=== PATIENT | female | born 1950 | race Two or more races ===

== ENCOUNTER 2017-01-28 05:01 | Inpatient (IN) | payer OTHER ==
[~2017-01-28] VITALS: Ht 152.4 cm; Wt 93.4 kg
[2017-01-28] MEDS ORDERED: KETOROLAC TROMETHAMINE INJ 30 MG/ML VIAL ONE (05:52)
[2017-01-28] MEDS ORDERED: BUPIVACAINE MPF 0.5% W/EPI INJ 30 ML VIAL ONE (05:52)
[2017-01-28] MEDS ORDERED: BACITRACIN 50000 UNITS/VIAL ONE (05:52)
[2017-01-28] MEDS ORDERED: HYDR25TA4 PO (05:54)
[2017-01-28] MEDS ORDERED: ATEN50TA PO (05:54)
[2017-01-28] MEDS ORDERED: GABA-534 PO (05:54)
[2017-01-28] MEDS ORDERED: IBUP-1955 PO (05:54)
[2017-01-28] MEDS ORDERED: PANT40TA2 PO (05:54)
[2017-01-28] MEDS ORDERED: LOSA100T3 PO (05:54)
[2017-01-28] MEDS ORDERED: AMLO10TA4 PO (05:54)
[2017-01-28] MEDS ORDERED: CEFAZOLIN SODIUM/DEXTROSE,ISO 50 ML IV ONE (06:04)
[2017-01-28] MEDS ORDERED: IV SET PRIMARY 1 EA INFUS.SET MC ONE (06:05)
[2017-01-28] MEDS ORDERED: IV NS 0.9% 1,000 ML ONE (06:05)
[2017-01-28] MEDS ORDERED: NEEDLELESS EST SET LARGE BORE 1 EA INFUS.SET MC ONE (06:05)
[2017-01-28] MEDS ORDERED: SECONDARY IV SET 1 EA INFUS.SET MC ONE ×2 (06:05→16:03)
[2017-01-28] MEDS ORDERED: MORPHINE SULFATE/PF 10 MG/10ML (1MG/ML) AMPUL ONE (06:18)
[2017-01-28] MEDS ORDERED: MIDAZOLAM HCL 2 MG/2ML VIAL ONE (06:19)
[2017-01-28] MEDS ORDERED: SUCCINYLCHOLINE CHLORIDE 20 MG/ML VIAL ONE (06:19)
[2017-01-28] MEDS ORDERED: FENTANYL PF 100MCG/2ML AMPUL ONE (06:57)
[2017-01-28] MEDS ORDERED: ROCURONIUM BROMIDE 50 MG/5 ML ONE (06:58)
[2017-01-28 07:05] VITALS: BP 142/71
[2017-01-28] MEDS ORDERED: TRANEXAMIC ACID 3,000 MG in SODIUM CHLORIDE IRRIG SOLUTION 70 ML IR ONE (07:30)
[2017-01-28] MEDS ORDERED: HYDROMORPHONE INJ 2 MG/ML DISP.SYRIN ONE (08:59)
[2017-01-28] MEDS ORDERED: oxyCODONE IR immediate release 5 MG CAPSULE PO PRN (09:30)
[2017-01-28] MEDS ORDERED: NALOXONE HCL 0.4 MG/ML AMPUL IV PRN ×2 (09:30→11:00)
--- NOTE | 2017-01-28 09:43 | NUR ---
MS RN NOTES RECEIVED PT FORM OR AWAKE ALERT AND VERBALLY RESPONSIVE. NOT IN ANY DISTRESS. NO SOB NOTED. NO S/SX OF ANY PAIN OR DISCOMFORT AT THIS TIME TO HAVE SALES SUPPORT REP PUMP WILL CONTINUE TO MONITOR. ORIENTED TO ROOM AND USE OF CALL LIGHT WITHIN REACH. BED IN LOWEST POSITION. SR UP X 2 WITH BED ALARM ON FOR SAFETY. WILL CONTINUE TO MONITOR, DR RAMOS AWARE OF PTS ARRIVAL, TO HAVE CONSULT WITH DR. ARAGON
[2017-01-28 10:00] VITALS: BP_SYST 131; BP_SYST 133; BP_DIAS 77; BP_DIAS 79
[2017-01-28] MEDS ORDERED: ZOLPIDEM TARTRATE 5 MG TABLET PO PRN (10:00)
[2017-01-28] MEDS ORDERED: DOCUSATE SODIUM 250 MG CAPSULE PO PRN (10:00)
[2017-01-28] MEDS ORDERED: ONDANSETRON HCL/PF 4 MG/2 ML VIAL IV PRN ×2 (10:00→11:00)
[2017-01-28] MEDS ORDERED: HYDROCODONE/APAP 5/325MG 1 EACH TABLET PO PRN (10:00)
[2017-01-28] MEDS ORDERED: SET PCA INFUSE SET 1 EA INFUS.SET MC ONE (10:29)
[2017-01-28] MEDS ORDERED: CLONIDINE HCL 0.1 MG TABLET PO PRN (10:30)
[2017-01-28] MEDS ORDERED: MENTHOL/CETYLPYRD (CEPACOL) 1 LOZ LOZENGE MM PRN (10:30)
[2017-01-28] MEDS ORDERED: LORAZEPAM 0.5 MG TABLET PO PRN (10:30)
[2017-01-28] MEDS ORDERED: IV SET PRIMARY PUMP SET 1 EA INFUS.SET MC ONE (10:30)
[2017-01-28] MEDS: IV D5/0.45 NACL 1,000 ML IV PRN (10:44)
[2017-01-28] MEDS: HYDROMORPHONE MDV 30 MG in IV NS 0.9% 15 ML, PCA TOTAL VOLUME 1 BAG IV PRN ×3 (10:48)
[2017-01-28] MEDS ORDERED: BISACODYL SUPP (10 MG) 10 MG/SUPP.RECT SUPP.RECT RC PRN ×2 (11:00→22:00)
[2017-01-28] MEDS ORDERED: PROMETHAZINE HCL 25 MG/ML AMPUL IM PRN (11:00)
[2017-01-28] MEDS ORDERED: diphenhydrAMINE HCL 25 MG CAPSULE PO PRN (11:00)
[2017-01-28] MEDS ORDERED: MAGNESIUM HYDROXIDE 30 ML UDC PO PRN (11:00)
[2017-01-28] MEDS ORDERED: HYDROCODONE/APAP 10/325MG 1 EA TABLET PO PRN (11:00)
[2017-01-28] MEDS ORDERED: ACETAMINOPHEN W/ CODEINE#3 1 EA TABLET PO PRN (11:00)
[2017-01-28] MEDS ORDERED: MAG HYDROX/AL HYDROX/SIMETH 30 ML UDC PO PRN (11:00)
[2017-01-28] MEDS ORDERED: HYDROMORPHONE 1 MG/1 ML DISP.SYRIN SQ PRN (11:00)
[2017-01-28] MEDS: oxyCODONE IR immediate release 5 MG CAPSULE PO PRN (11:30)
[2017-01-28 16:00] VITALS: BP 104/61
[2017-01-28] MEDS: ANCEF 1 GM/50 ML D5W IV SCH ×4 (16:07→22:32)
[2017-01-28] MEDS: DOCUSATE SODIUM 100 MG CAPSULE PO SCH (17:19)
[2017-01-28] MEDS: RIVAROXABAN 10 MG TABLET PO SCH (17:26)
[2017-01-28 20:00] VITALS: BP 90/54
--- NOTE | 2017-01-28 20:00 | NUR ---
MS RN NOTES PT AWAKE ALERT AND VERBALLY RESPONSIVE. NOT IN ANY DISTRESS. NO SOB NOTED. NO S/SX OF ANY PAIN OR DISCOMFORT AT THIS TIME WITH MANUFACTURING SPECIALIST PUMP PAIN MANAGEMETN WILL CONTINUE TO MONITOR. ORIENTED TO ROOM AND USE OF CALL LIGHT WITHIN REACH. BED IN LOWEST POSITION. SR UP X 2 WITH BED ALARM ON FOR SAFETY., DR RAMOS AWARE OF PTS ARRIVAL, TO HAVE CONSULT WITH DR. ARAGON ENDORSED TO NEXT SHIFT FOR CONTINUITY OF CARE
--- NOTE | 2017-01-28 20:10 | NUR ---
MS RN NOTE: PATIENT RESTING IN BED, NO ACUTE DISTRESS NOTED. BREATHING EVEN AND UNLABORED, NO SOB NOTED. IV TO LEFT HAND/WRIST IN PLACE, INFUSING D5 1/2 NS AT 125 ML/HR. COPPER MINER BLASTING PUMP IN PLACE, SETTINGS VERIFIED WITH DAY NURSENANDO. RAZA CATHETER IN PLACE, DRAINING CLEAR YELLOW URINE. BED LOCKED AND IN LOWEST POSITION, CALL LIGHT IN REACH. WILL CONTINUE TO MONITOR.
[2017-01-28] MEDS ORDERED: PANTOPRAZOLE 40 MG TABLET.DR PO SCH (22:00)
[2017-01-28] MEDS ORDERED: SENNOSIDES 8.6 MG TABLET PO PRN (22:00)
[2017-01-28] MEDS: CLOTRIMAZOLE 1% 15 GM TUBE TP SCH (22:32)
--- NOTE | 2017-01-29 03:45 | NUR ---
MS RN NOTE: PATIENT SLEEPING IN BED, NO ACUTE DISTRESS NOTED. BREATHING EVEN AND UNLABORED, NO SOB NOTED. BED LOCKED AND IN LOWEST POSITION. WILL CONTINUE TO MONITOR.
[2017-01-29] MEDS: IV D5/0.45 NACL 1,000 ML IV PRN (03:49)
--- NOTE | 2017-01-29 06:45 | NUR ---
MS RN NOTE: PATIENT RESTING IN BED, NO ACUTE DISTRESS NOTED. BREATHING EVEN AND UNLABORED, NO SOB NOTED. IV TO LEFT HAND/WRIST IN PLACE, INFUSING D5 1/2 NS AT 125 ML/HR. INTEGRATED CIRCUIT FABRICATOR PUMP IN PLACE. RAZA CATHETER IN PLACE, DRAINING CLEAR YELLOW URINE. BED LOCKED AND IN LOWEST POSITION, CALL LIGHT IN REACH. WILL ENDORSE TO DAY NURSE TO CONTINUE WITH PLAN OF CARE.
[2017-01-29 06:57] LABS: BASOPHILS % (AUTO) 0.3 % (0.0-2.0); EOSINOPHILS % (AUTO) 0.8 % (0.0-6.0); HEMATOCRIT 28 % (33-45); HEMOGLOBIN 8.7 g/dL (11.5-14.8); LYMPHOCYTES # (AUTO) 1.2 /CMM (0.8-4.8); LYMPHOCYTES % (AUTO) 20.9 % (20.0-44.0); MEAN CORPUSCULAR HEMOGLOBIN 22 PG (26.0-33.0); MEAN CORPUSCULAR HGB CONC 31 g/dl (31.0-36.0); MEAN CORPUSCULAR VOLUME 72 fL (82-100); MONOCYTES # (AUTO) 0.5 /CMM (0.1-1.30); NEUTROPHILS # (AUTO) 3.9 /CMM (1.8-8.9); PLATELET COUNT (AUTO) 150 /CMM (150-450); RDW COEFFICIENT OF VARIATION 14.4 (11.5-15.0); RED BLOOD CELL COUNT(AUTO) 3.87 MIL/uL (4.0-5.2); WHITE BLOOD COUNT (AUTO) 5.7 K/uL (4.3-11.0)
[2017-01-29 07:23] LABS: CREATININE 1.2 mg/dL (0.6-1.3); MAGNESIUM 1.7 mg/dL (1.8-2.4); PHOSPHORUS 4.5 mg/dL (2.5-4.9); POTASSIUM 3.5 mmol/L (3.5-5.1)
--- NOTE | 2017-01-29 07:40 | NUR ---
MS RN NOTE: PATIENT RESTING IN BED, NO ACUTE DISTRESS NOTED. BREATHING EVEN AND UNLABORED, NO SOB NOTED. IV TO LEFT HAND/WRIST IN PLACE, INFUSING D5 1/2 NS AT 125 ML/HR. KILN MAINTENANCE PUMP IN PLACE, SETTINGS VERIFIED WITH MEDICAL PHYSICS PROFESSOR NURSE. RAZA CATHETER IN PLACE, DRAINING CLEAR YELLOW URINE. BED LOCKED AND IN LOWEST POSITION, CALL LIGHT IN REACH. WILL CONTINUE TO MONITOR.
[2017-01-29 08:00] VITALS: BP 130/58
[2017-01-29] MEDS: DOCUSATE SODIUM 100 MG CAPSULE PO SCH ×2 (08:12→16:44)
[2017-01-29] MEDS: SENNOSIDES 8.6 MG TABLET PO SCH (08:12)
[2017-01-29] MEDS: PANTOPRAZOLE 40 MG TABLET.DR PO SCH (08:13)
[2017-01-29] MEDS: CLOTRIMAZOLE 1% 15 GM TUBE TP SCH (08:15)
[2017-01-29] MEDS: oxyCODONE IR immediate release 5 MG CAPSULE PO PRN (09:09)
[2017-01-29] MEDS ORDERED: MAGNESIUM OXIDE 400 MG TABLET PO ONE (10:30)
[2017-01-29 10:48] LABS: HYPOCHROMASIA 1+; PLATELET ESTIMATE ADEQUATE
[2017-01-29 10:49] LABS: OVALOCYTES 2+
[2017-01-29] MEDS ORDERED: SET PCA INFUSE SET 1 EA INFUS.SET MC ONE (11:38)
[2017-01-29] MEDS: HYDROMORPHONE MDV 30 MG in IV NS 0.9% 15 ML, PCA TOTAL VOLUME 1 BAG IV PRN ×3 (12:04)
--- NOTE | 2017-01-29 12:10 | NUR ---
RN NOTES CHANGED DILAUDID SURGICAL GARMENT INSPECTOR BAG PER PROTOCOL, DOSE TITRATED UP TO 0.4 MG FOR BETTER PAIN RELIEF CONTROL CHECKED BY 2 RNS WILL CONTINUE TO MONITOR
[2017-01-29 16:00] VITALS: BP 150/70
[2017-01-29] MEDS: RIVAROXABAN 10 MG TABLET PO SCH (16:51)
[2017-01-29] MEDS ORDERED: IBUPROFEN 600 MG TABLET PO PRN (17:00)
--- NOTE | 2017-01-29 19:35 | NUR ---
MS/RN NOTES RECEIVED PT. LYING IN BED RESTING. EASILY AROUSABLE. AWAKE, ALERT AND ORIENTED X4. BREATHING EVEN AND UNLABORED ON 2LPM O2 VIA NC. NO SOB, RESPIRATORY DISTRESS OR COMPLAINTS OF PAIN NOTED AT THIS TIME. PT. WITH LEFT HAND IV 20 GAUGE PRESENT, PATENT AND INTACT. PT. WITH SURFACE TO AIR WEAPONS OFFICER PUMP PRESENT AND INTACT. SURFACE TO AIR WEAPONS OFFICER PUMP SET TO 0.4MG BOLUS LOCKOUT 10 MIN. PT. TOLERATING WELL. PT. WITH RIGHT LEG SURGICAL DRESSING PRESENT AND INTACT. NO BLEEDING OR DRAINAGE NOTED. BED IN LOWEST POSITION, CALL LIGHT WITHIN REACH. WILL CONTINUE TO MONITOR.
[2017-01-29 20:00] VITALS: BP 159/82
--- NOTE | 2017-01-29 20:00 | NUR ---
MS RN NOTES PT AWAKE ALERT AND VERBALLY RESPONSIVE. NOT IN ANY DISTRESS. NO SOB NOTED. NO S/SX OF ANY PAIN OR DISCOMFORT AT THIS TIME WITH POLYSOMNOGRAPHIC TECHNOLOGIST PUMP PAIN MANAGEMENT WILL CONTINUE TO MONITOR. ORIENTED TO ROOM AND USE OF CALL LIGHT WITHIN REACH. BED IN LOWEST POSITION. SR UP X 2 WITH BED ALARM ON FOR SAFETY. S/P RAZA CATHETER REMOVAL ABLE TO VOID SMALL AMOUNT TO BE FURTHER MONITORED ENDORSED TO NEXT SHIFT FOR CONTINUITY OF CARE
[2017-01-29] MEDS: ACETAMINOPHEN 325 MG TABLET PO PRN (20:27)
--- NOTE | 2017-01-29 20:27 | NUR ---
MS/RN NOTES PT. WITH FEVER OF 101F ADMINISTERED TO PT. TYLENOL 650MG PO PRN FEVER. IMPLEMENTED COOLING MEASURES. REMOVED HEAVY BLANKETS FROM PT. WILL CONTINUE TO MONITOR.
--- NOTE | 2017-01-29 21:30 | NUR ---
MS/RN NOTES PT. CURRENT TEMP: 99.6F. COOLING MEASURES AND MEDICATION EFFECTIVE. WILL CONTINUE COOLING MEASURES WILL CONTINUE TO MONITOR.
--- NOTE | 2017-01-29 22:40 | NUR ---
MS/RN NOTES PT. TEMP 98.7F. COOLING MEASURES EFFECTIVE. PT. APPEARS COMFORTABLE AT THE MOMENT. WILL CONTINUE TO MONITOR.
[2017-01-30] VITALS (9 sets, daily range): BP systolic 126–152; BP diastolic 51–81
[2017-01-30] MEDS ORDERED: IV NS 0.9% 250 ML IV ONE (03:59)
--- NOTE | 2017-01-30 06:30 | NUR ---
MS/RN NOTES PT. LYING IN BED RESTING.BREATHING EVEN AND UNLABORED ON 2LPM O2 VIA NC. NO SOB, RESPIRATORY DISTRESS OR COMPLAINTS OF PAIN NOTED AT THIS TIME. PT. WITH LEFT HAND IV 20 GAUGE PRESENT, PATENT AND INTACT. PT. VITAL SIGNS STABLE AT THIS TIME. PT. REMAINS WITH WITH LOW VISION THERAPIST PUMP PRESENT AND INTACT. ALL PT. NEEDS MET. BED IN LOWEST POSITION, CALL LIGHT WITHIN REACH. WILL ENDORSE TO DAYSHIFT NURSE FOR CONTINUITY OF CARE.
[2017-01-30 06:45] LABS: BASOPHILS % (AUTO) 0.4 % (0.0-2.0); EOSINOPHILS # (AUTO) 0.1 /CMM (0.0-0.7); EOSINOPHILS % (AUTO) 2.2 % (0.0-6.0); HEMATOCRIT 30 % (33-45); HEMOGLOBIN 9.3 g/dL (11.5-14.8); LYMPHOCYTES # (AUTO) 1.1 /CMM (0.8-4.8); LYMPHOCYTES % (AUTO) 18.8 % (20.0-44.0); MEAN CORPUSCULAR HEMOGLOBIN 23 PG (26.0-33.0); MEAN CORPUSCULAR HGB CONC 31 g/dl (31.0-36.0); MEAN CORPUSCULAR VOLUME 72 fL (82-100); MONOCYTES # (AUTO) 0.7 /CMM (0.1-1.30); MONOCYTES % (AUTO) 11.3 % (2.0-12.0); NEUTROPHILS # (AUTO) 3.9 /CMM (1.8-8.9); NEUTROPHILS % (AUTO) 67.3 % (43.0-81.0); PLATELET COUNT (AUTO) 141 /CMM (150-450); RDW COEFFICIENT OF VARIATION 14.2 (11.5-15.0); RED BLOOD CELL COUNT(AUTO) 4.14 MIL/uL (4.0-5.2); WHITE BLOOD COUNT (AUTO) 5.8 K/uL (4.3-11.0)
[2017-01-30 07:11] LABS: CALCIUM, SERUM 8.7 mg/dL (8.5-10.1); CREATININE 1.1 mg/dL (0.6-1.3); MAGNESIUM 1.8 mg/dL (1.8-2.4); POTASSIUM 3.4 mmol/L (3.5-5.1)
--- NOTE | 2017-01-30 07:30 | NUR ---
MS RN AM NOTE: PATIENT IN BED, AAO X 4, S/P RT TOTAL KNEE ARTHROPLASTY BY . ON 2L O2 VIA NC, NO ACUTE DISTRESS NOTED. BREATHING EVEN AND UNLABORED, NO SOB NOTED. LEFT HAND/WRIST IN PLACE, SITE CLEAR, TRUCK GUARD PUMP IN PLACE, SETTINGS VERIFIED WITH ALPINE GUIDE NURSE. IMMOBILIZER TO RT KNEE/LEG IN PLACE. BED LOCKED AND IN LOWEST POSITION, CALL LIGHT IN REACH. WILL CONTINUE TO MONITOR.
[2017-01-30] MEDS: PANTOPRAZOLE 40 MG TABLET.DR PO SCH (09:03)
[2017-01-30] MEDS: DOCUSATE SODIUM 100 MG CAPSULE PO SCH ×2 (09:03→17:00)
[2017-01-30] MEDS: SENNOSIDES 8.6 MG TABLET PO SCH (09:03)
[2017-01-30] MEDS: CLOTRIMAZOLE 1% 15 GM TUBE TP SCH (09:04)
[2017-01-30 09:21] LABS: HEPATITIS A AB, IgM Negative (Negative); HEPATITIS B CORE AB, IgM Negative (Negative); HEPATITIS C VIRUS AB 0.1 s/co ratio (0.0-0.9)
--- NOTE | 2017-01-30 09:30 | NUR ---
RN NOTES ADMINISTERED DUE MEDS.
[2017-01-30] MEDS ORDERED: POTASSIUM CHLORIDE 20 MEQ TAB.PRT.SR PO SCH (10:00)
[2017-01-30] MEDS ORDERED: DEXTROSE 50%-WATER 50 ML DISP.SYRIN IV PRN (12:30)
[2017-01-30] MEDS ORDERED: INSULIN REGULAR, HUMAN 100 UNIT/ML 3 ML VIAL SQ PRN (12:30)
[2017-01-30] MEDS ORDERED: SET PCA INFUSE SET 1 EA INFUS.SET MC ONE (12:35)
[2017-01-30] MEDS: HYDROMORPHONE MDV 30 MG in IV NS 0.9% 15 ML, PCA TOTAL VOLUME 1 BAG IV PRN ×3 (13:13)
--- NOTE | 2017-01-30 13:13 | NUR ---
RN NOTES VENDING MACHINE ATTENDANT PUMP CHANGED WITH COLLEAGUE ARLEEN JEAN. SAME SETTING.
--- NOTE | 2017-01-30 16:14 | NUR ---
MIRANDA NOTES RAPID RESPONSE CALLED. Addendum: 01/30/17 at 2003 by CALLY VILLALOBOS RN ADDENDUM: RAPID RESPONSE: RAPID RESPONSE CALLED D/T CHANGE IN PT LOC, LETHARGIC, DIFFICULT TO AROUSE. SPO2 84%, BP 133/51, HR 82, RR 21, O2 SAT 84%. PULSES PALPABLE, RESPONDS TO TACTILE STIMULI. HOB ELEVATED, NON-REBREATHER APPLIED; O2 SAT INCREASED TO 100%. LORA IBRAHIM SUPERVISOR OVENS AT BEDSIDE, ORDERS NARCAN 0.4 MG IVP STAT, DILAUDID CAPTAIN FISHING VESSEL D'C'D.
[2017-01-30] MEDS ORDERED: NALOXONE HCL 0.4 MG/ML AMPUL ONE (16:15)
--- NOTE | 2017-01-30 16:25 | NUR ---
RAPID RESPONSE: STATION INSPECTOR CALLED DT CHANGE IN PT LOC, LETHARGIC, DIFFICULT TO AROUSE, WITH HEARING AID IN LEFT EAR; SPO2 81%, SBP >130'S, HR 80'S, PULSES PALPABLE, RESPONDS TO TACTILE STIMULI. HOB ELEVATED, NON-REBREATHER APPLIED; O2 SAT INCREASED TO 100%. LORA IBRAHIM ASSISTANCE COORDINATOR AT BEDSIDE, ORDERS NARCAN 0.4 MG IVP STAT, DILAUDID SOUNDSCRIBER MECHANIC D'C'D. PT NOW AWAKE AND ORIENTED, OBEYS COMMANDS, BREATHING EVEN AND UNLABORED, PLACED BACK ON NC. FAMILY AND PT EDUCATED BY LORA IBRAHIM. PRIMARY RN AT THE BEDSIDE TO CONTINUE TO MONITOR PT STATUS.
[2017-01-30 16:36] LABS: ABG BASE EXCESS -3.3 mmol/L; ABG OXYGEN SATURATION 98.5 % (92.0-98.5); ABG PCO2 69.6 mmHg (35.0-45.0); ABG PH 7.183 (7.350-7.450); ABG PO2 182.9 mmHg (75.0-100.0); ABG TOTAL HEMOGLOBIN 9.3 G/dL (12.0-16.0); AaDO2 314.4 mmHg; COHb 1.2 % (0.5-1.5); MetHb 0.8 % (0.0-1.5); O2Hb 96.5 % (94.0-97.0); SITE, ABG Left Radial; VENT MODE, BG NON-REBREATHER MASK
--- NOTE | 2017-01-30 16:55 | NUR ---
RN NOTES PATIENT TRANSFERRED TO ICU RM 256. BEDSIDE REPORT GIVEN TO TONA JEAN
[2017-01-30] MEDS: BOOST PLUS FOOD-CHOCLATE 237 ML BOX PO SCH (17:00)
[2017-01-30] MEDS ORDERED: FUROSEMIDE 20 MG/2 ML VIAL IV SCH (17:00)
[2017-01-30] MEDS: RIVAROXABAN 10 MG TABLET PO SCH (17:00)
[2017-01-30] MEDS: GABAPENTIN 300 MG CAPSULE PO SCH (17:00)
[2017-01-30] MEDS ORDERED: NALOXONE HCL 0.4 MG/ML AMPUL IV ONE (17:00)
--- NOTE | 2017-01-30 17:05 | NUR ---
ICU/RN: PT RECEIVED FROM MS2 FOR CLOSE OBSERVATION ORDERED BY LORA IBRAHIM. PT IS AWAKE, DROWSY, A&OX4, FOLLOWS COMMANDS, DENIES CP, DISCOMFORT. ORIENTED TO UNIT AND POC. VERBALIZED UNDERSTANDING. MOTHER AND DAUGHTER AT BEDSIDE, ANXIOUS. EDUCATED. ST 103 ON MONITOR, PLACED ON NON-REBREATHER, O2 SAT DROPS TO MID 80'S ON SIMPLE MASK. WILL TITRATE ACCORDINGLY.
[2017-01-30 17:06] LABS: ABG BASE EXCESS 0.8 mmol/L; ABG OXYGEN SATURATION 95.3 % (92.0-98.5); ABG PCO2 59.3 mmHg (35.0-45.0); ABG PH 7.291 (7.350-7.450); ABG PO2 84.5 mmHg (75.0-100.0); ABG TOTAL HEMOGLOBIN 9.1 G/dL (12.0-16.0); AaDO2 96.1 mmHg; COHb 1.3 % (0.5-1.5); MetHb 0.9 % (0.0-1.5); O2Hb 93.2 % (94.0-97.0); SITE, ABG Right Radial; VENT MODE, BG SM
[2017-01-30] MEDS: BLOOD SUGAR DIAGNOSTIC 1 EACH STRIP IN SCH ×2 (17:33→21:55)
--- NOTE | 2017-01-30 17:47 | NUR ---
ICU/RN: DR ARAGON ON PHONE; UPDATED ON PT STATUS, S/P STRIPPER AND PRINTER, NARCAN DOSAGES ADMINISTERED, RESP STATUS. NEW ORDERS NOTED AND CARRIED OUT.
--- NOTE | 2017-01-30 17:53 | NUR ---
ICU/RN: WILLEI FOSS AT THE BEDSIDE FOR DRSG CHANGE. POC DW FAMILY.
--- NOTE | 2017-01-30 18:10 | NUR ---
ICU/RN: Ashwin MERCADO CHANGED, BY WILLIE JOSEPH. PT TOLERATED WELL. POC DW PT AND FAMILY. NOW LESS LETHARGIC, MORE COMMUNICATIVE WITH FAMILY AND STAFF.
--- NOTE | 2017-01-30 19:20 | NUR ---
ICU/RN: 1900 DOSE OF NARCAN EFFECTIVE, PT AWAKE, RESPONDS TO COMMANDS, WITH PERIODS OF DROWSINESS. CARE ENDORSED TO PM RN FOR JOEL.
--- NOTE | 2017-01-30 19:51 | NUR ---
PERFORMANCE IMPROVEMENT COORDINATOR: PT TRANSFERRED TO MED SURG ROOM # 209-1, BEDSIDE REPORT GIVEN TO ILAN/RN. PT IN STABLE CONDITION, LOOKS LITTLE DROWSY BUT AA0 X3, DENIED PAIN AT THIS TIME. NARCAN 0.2 MG IV GIVEN BY PREVIOUS NURSE/TONA AROUND 1900.
--- NOTE | 2017-01-30 20:00 | NUR ---
RN NOTE; RECEIVED PT FROM ICU W/ BED SIDE REPORT. PT STILL VERY DROWSY. OX3. VS OBTAINED AND PLACED PT ON O2 AT 5LPM VIA MASK TO KEEP THE O2 SAT>93%. NO C/O PAIN OR DISCOMFORT AT THIS TIME. DRESSING ON R KNEE CDI. FOOT PUMP AND STOCKING HOSE IN PLACE. NEEDS ATTENDED. PLACED PT ON CONT O2 SAT MONITORING . WILL CONT TO MONITOR CLOSELY.
[2017-01-30] MEDS: ACETAMINOPHEN 325 MG TABLET PO PRN (22:14)
[2017-01-31] MEDS: HYDROMORPHONE 1 MG/1 ML DISP.SYRIN SQ PRN ×3 (04:29→15:38)
--- NOTE | 2017-01-31 04:32 | NUR ---
ASSISTED PT TO THE BED SIDE COMMODE PER HER REQUEST FOR URINATING AND PASSING GAS. PT WAS SUCCESSFULLY AND SAFELY TRANSFERRED BACK IN BED HOWEVER WITH C/O SEVERE R KNEE PAIN. REMAINED ON CONT. O2 SAT MONITORING SATTING 100% ON 4L OF O2 VIA NC. AWAKE AND ALERT. NO AMS NO ALOC. REQUESTED DILAUDID GIVEN ORDERED . WILL CONT TO MONITOR. .
[2017-01-31 06:38] LABS: BASOPHILS % (AUTO) 0.2 % (0.0-2.0); EOSINOPHILS # (AUTO) 0.1 /CMM (0.0-0.7); EOSINOPHILS % (AUTO) 1.3 % (0.0-6.0); HEMATOCRIT 26 % (33-45); HEMOGLOBIN 8.2 g/dL (11.5-14.8); LYMPHOCYTES # (AUTO) 0.7 /CMM (0.8-4.8); LYMPHOCYTES % (AUTO) 14.2 % (20.0-44.0); MEAN CORPUSCULAR HEMOGLOBIN 23 PG (26.0-33.0); MEAN CORPUSCULAR HGB CONC 31 g/dl (31.0-36.0); MEAN CORPUSCULAR VOLUME 72 fL (82-100); MONOCYTES # (AUTO) 0.5 /CMM (0.1-1.30); MONOCYTES % (AUTO) 10.1 % (2.0-12.0); NEUTROPHILS # (AUTO) 3.8 /CMM (1.8-8.9); NEUTROPHILS % (AUTO) 74.2 % (43.0-81.0); PLATELET COUNT (AUTO) 124 /CMM (150-450); RDW COEFFICIENT OF VARIATION 14.1 (11.5-15.0); RED BLOOD CELL COUNT(AUTO) 3.64 MIL/uL (4.0-5.2); WHITE BLOOD COUNT (AUTO) 5.1 K/uL (4.3-11.0)
[2017-01-31 06:55] LABS: CALCIUM, SERUM 8.2 mg/dL (8.5-10.1); CREATININE 1.1 mg/dL (0.6-1.3); POTASSIUM 3.5 mmol/L (3.5-5.1)
[2017-01-31] MEDS: BLOOD SUGAR DIAGNOSTIC 1 EACH STRIP IN SCH ×4 (07:05→22:22)
--- NOTE | 2017-01-31 07:05 | NUR ---
RN NOTE; PT IN BED SLEEPING W/ DTR AT THE BED SIDE . BREATHING EVENLY. NO SOB. NO S/S OF RESPIRATORY DISTRESS. PAIN MEDICATION GIVEN ORDERED. PER PT'S REQUEST. NEEDS ATTENDED . ASSISTED W/ ADLS . BED LOW LOCKED .CALL LIGHT WITHIN REACH. WILL CONT TO MONITOR AND WILL ENDORSE TO AM SHIFT FOR JOEL.
[2017-01-31 07:45] LABS: ANISOCYTOSIS 2+; BAND % (MANUAL) 3 % (0.0-5.0); EOSINOPHILS % (MANUAL) 2 % (0-4); HYPOCHROMASIA 1+; LYMPHOCYTES % (MANUAL) 12 % (16-48); MONOCYTES % (MANUAL) 9 % (0-11.0); NEUTROPHILS % (MANUAL) 74 (42-76); PLATELET ESTIMATE DECREASED
[2017-01-31 08:00] VITALS: BP 143/73
--- NOTE | 2017-01-31 08:00 | NUR ---
MS RN NOTED PATIENT IN BED RESTING NO SOB OR ACUTE DISTRESS NOTED. DENIES ANY PAIR OR DISCOMFORT. BED IN LOW LOCKED POSITION. CALL LIGHT WITHIN REACH. DAUGHTER AT BEDSIDE. WILL CONTINUE TO MONITOR.
[2017-01-31] MEDS ORDERED: PANTOPRAZOLE 40 MG TABLET.DR PO SCH (09:00)
[2017-01-31] MEDS: SENNOSIDES 8.6 MG TABLET PO SCH (09:49)
[2017-01-31] MEDS: PANTOPRAZOLE 40 MG TABLET.DR PO SCH (09:49)
[2017-01-31] MEDS: GABAPENTIN 300 MG CAPSULE PO SCH ×3 (09:49→16:41)
[2017-01-31] MEDS: DOCUSATE SODIUM 100 MG CAPSULE PO SCH ×2 (09:50→16:41)
[2017-01-31] MEDS: LOSARTAN POTASSIUM 50 MG TABLET PO SCH (09:50)
[2017-01-31] MEDS: ATENOLOL 50 MG TABLET PO SCH (09:51)
[2017-01-31] MEDS: AMLODIPINE BESYLATE 10 MG TABLET PO SCH (09:51)
[2017-01-31] MEDS: HYDROCHLOROTHIAZIDE 25 MG TABLET PO SCH (09:51)
[2017-01-31] MEDS: BOOST PLUS FOOD-CHOCLATE 237 ML BOX PO SCH ×2 (09:52→16:41)
[2017-01-31] MEDS: CLOTRIMAZOLE 1% 15 GM TUBE TP SCH (09:54)
[2017-01-31 16:00] VITALS: BP 140/76
[2017-01-31] MEDS: RIVAROXABAN 10 MG TABLET PO SCH (16:47)
[2017-01-31 19:00] VITALS: BP 128/59
--- NOTE | 2017-01-31 19:27 | NUR ---
MS RN NOTES PATIENT IN BED RESTING NO SOB OR ACUTE DISTRESS NOTED. ALL DUE MEDICATIONS GIVEN. ALL NEEDS MET. WILL ENDORSE JOEL TO PM SHIFT.
--- NOTE | 2017-01-31 19:30 | NUR ---
RN NOTE; RECEIVED PT IN BED SLEEPING W/ DTR AT THE BED SIDE. BREATHING EVENLY. NO SOB. NO DISTRESS. ON O2 AT 3LPM VIA NC CRISTIAN WELL. USING CPM MACHINE AT THIS TIME W/ NO C/O PAIN OR DISCOMFORT. BED LOW LOCKED. CALL LIGHT WITHIN REACH. WILL CONT TO MONITOR
[2017-01-31 20:00] VITALS: BP 128/59
--- NOTE | 2017-01-31 21:55 | NUR ---
PT W/ A NEW X1 ORDER FOR LASIX AND KDUR. PLACED A CALL TO LORA IBRAHIM THE ORDERING TO CLARIFY THE ORDER AND ASKED FOR THE INDICATION. PER LORA IBRAHIM " SHE HAS CHF", AND PER MD ASSESSMENT SHE SOUNDED WET . "HER CXR FROM THE DAY BEFORE SHOWS CHF" HE SAID. PT MADE AWARE OF THE ORDER . PER PT SHE TAKES THE LASIX PO AT HOME ALSO.
[2017-01-31] MEDS ORDERED: FUROSEMIDE 100 MG/10 ML VIAL ONE (21:58)
[2017-01-31] MEDS ORDERED: POTASSIUM CHLORIDE 20 MEQ TAB.PRT.SR PO ONE ×2 (21:59→22:00)
[2017-01-31] MEDS ORDERED: FUROSEMIDE 100 MG/10 ML VIAL IV ONE (22:00)
[2017-02-01] MEDS: HYDROMORPHONE 1 MG/1 ML DISP.SYRIN SQ PRN (00:36)
--- NOTE | 2017-02-01 00:36 | NUR ---
DILAUDID GIVEN FOR SEVERE R KNEE PAIN . WILL CONT TO MONITOR
--- NOTE | 2017-02-01 06:42 | NUR ---
RN NOTE; PT IN BED SLEEPING W/ THE DTR AT THE BED SIDE. BREATHING EVENLY. NO SOB. TEMPERATURE COOLED DOWN W/ TAKING OFF EXTRA BLANKETS AND THE CPM MACHINE AND WASHING THE PT'S FACE. NO ACUTE CHANGES NOTED OVER THE NIGHT . NO COMPLICATIONS TO LASIX IVP . INCENTIVE SPIROMETER WAS ENCOURAGED. PAIN MEDICATION GIVEN ORDERED PER PT'S REQUEST. RESPONDED WELL. NEEDS ATTENDED. ASSISTED W/ BSC. CALL LIGHT WITHIN REACH. WILL CONT TO MONITOR. AND WILL ENDORSE TO AM SHIFT FOR JOEL
[2017-02-01] MEDS: BLOOD SUGAR DIAGNOSTIC 1 EACH STRIP IN SCH ×2 (06:50→12:15)
[2017-02-01 07:21] LABS: BASOPHILS % (AUTO) 0.2 % (0.0-2.0); EOSINOPHILS # (AUTO) 0.1 /CMM (0.0-0.7); EOSINOPHILS % (AUTO) 2.1 % (0.0-6.0); HEMATOCRIT 26 % (33-45); HEMOGLOBIN 8.1 g/dL (11.5-14.8); LYMPHOCYTES # (AUTO) 0.9 /CMM (0.8-4.8); LYMPHOCYTES % (AUTO) 19.2 % (20.0-44.0); MEAN CORPUSCULAR HEMOGLOBIN 22 PG (26.0-33.0); MEAN CORPUSCULAR HGB CONC 31 g/dl (31.0-36.0); MEAN CORPUSCULAR VOLUME 72 fL (82-100); MONOCYTES # (AUTO) 0.5 /CMM (0.1-1.30); MONOCYTES % (AUTO) 10.5 % (2.0-12.0); NEUTROPHILS # (AUTO) 3.3 /CMM (1.8-8.9); PLATELET COUNT (AUTO) 144 /CMM (150-450); RDW COEFFICIENT OF VARIATION 13.6 (11.5-15.0); RED BLOOD CELL COUNT(AUTO) 3.62 MIL/uL (4.0-5.2); WHITE BLOOD COUNT (AUTO) 4.9 K/uL (4.3-11.0)
[2017-02-01 07:42] LABS: CALCIUM, SERUM 8.1 mg/dL (8.5-10.1); CREATININE 1.1 mg/dL (0.6-1.3); MAGNESIUM 1.6 mg/dL (1.8-2.4); PHOSPHORUS 2.6 mg/dL (2.5-4.9); POTASSIUM 3.6 mmol/L (3.5-5.1)
[2017-02-01 08:00] VITALS: BP 144/60
[2017-02-01] MEDS ORDERED: TRAMADOL HCL 50 MG TABLET PO PRN (08:00)
[2017-02-01] MEDS ORDERED: TRAMADOL HCL 50 MG TABLET PO ONE (08:00)
--- NOTE | 2017-02-01 08:00 | NUR ---
MS RN NOTES PATIENT IN BED RESTING NO SOB OR ACUTE DISTRESS NOTED. CALL LIGHT WITHIN REACH. BED IN LOW LOCKED POSITION. WILL CONTINUE TO MONITOR CLOSELY. DAUGHTER AT BEDSIDE.
[2017-02-01] MEDS: GABAPENTIN 300 MG CAPSULE PO SCH ×2 (08:48→12:14)
[2017-02-01] MEDS: AMLODIPINE BESYLATE 10 MG TABLET PO SCH (08:48)
[2017-02-01] MEDS: ATENOLOL 50 MG TABLET PO SCH (08:49)
[2017-02-01] MEDS: PANTOPRAZOLE 40 MG TABLET.DR PO SCH (08:49)
[2017-02-01] MEDS: SENNOSIDES 8.6 MG TABLET PO SCH (08:49)
[2017-02-01] MEDS: DOCUSATE SODIUM 100 MG CAPSULE PO SCH (08:50)
[2017-02-01 08:51] VITALS: BP 144/60
[2017-02-01] MEDS: LOSARTAN POTASSIUM 50 MG TABLET PO SCH (08:51)
[2017-02-01] MEDS: CLOTRIMAZOLE 1% 15 GM TUBE TP SCH (08:51)
[2017-02-01] MEDS: HYDROCHLOROTHIAZIDE 25 MG TABLET PO SCH (08:51)
[2017-02-01] MEDS: BOOST PLUS FOOD-CHOCLATE 237 ML BOX PO SCH (08:53)
[2017-02-01] MEDS ORDERED: SECONDARY IV SET 1 EA INFUS.SET MC ONE (11:56)
[2017-02-01] MEDS ORDERED: IV NS 0.9% 250 ML IV ONE (12:00)
[2017-02-01] MEDS ORDERED: IV SET PRIMARY PUMP SET 1 EA INFUS.SET MC ONE (12:00)
[2017-02-01 12:02] LABS: THYROID STIMULATING HORMONE 1.66 uIU/mL (0.358-3.74)
[2017-02-01 12:10] LABS: TROPONIN I 0.01 ng/mL (0.00-0.056)
[2017-02-01] MEDS: Magnesium 1GM/D5W 100ML PREMIX 100 ML IV SCH ×2 (12:14→13:00)
--- NOTE | 2017-02-01 17:59 | NUR ---
m/s rn - note gave pt 25 mg tramadol before dc to rehab. unable to scan medication because pt was discharged out of [facility] early.
--- NOTE | 2017-02-01 18:00 | NUR ---
M/S RN - DISCHARGE DISCHARGE ORDERS RECEIVED. DISCHARGE INSTRUCTIONS GIVEN TO PT VERBALLY AND WRITTEN. REPORT GIVEN TO TEMO RN AT [facility]. PTS RIGHT KNEE IN IMMOBILIZER. REPORT GIVEN TO AMBULANCE STAFF. IV DC'D WITH CATHETER INTACT. ALL BELONGINGS CONFIRMED AT BEDSIDE.
== END 2017-02-01 17:55 | DRG 469 ==
LOC: DS 05:01 → MEDSG2 09:32 → ICU 01-30 17:30 → MEDSG2 01-30 19:40
PROVIDERS: ADMIT Specialist
PROC: 0SRC0JZ Replacement of Right Knee Joint with Synthetic Substitute, Open Approach (ICD-10-PCS; principal; 2017-01-28 06:59)
DX: M17.11 Unilateral primary osteoarthritis, right knee (principal); I50.33 Acute on chronic diastolic (congestive) heart failure; J96.02 Acute respiratory failure with hypercapnia; J96.01 Acute respiratory failure with hypoxia; K21.9 Gastro-esophageal reflux disease without esophagitis; E11.9 Type 2 diabetes mellitus without complications; E78.5 Hyperlipidemia, unspecified; E66.9 Obesity, unspecified; E78.00 Pure hypercholesterolemia, unspecified; D50.9 Iron deficiency anemia, unspecified; E83.42 Hypomagnesemia; I11.0 Hypertensive heart disease with heart failure; T50.7X5A Adverse effect of analeptics and opioid receptor antagonists, initial encounter
CPT/HCPCS: 36415; 36600; 71010-TC; 80048-TC; 80061-TC; 80074; 82728-TC; 82962-TC; 83540-TC; 83735-TC; 84100-TC; 84439-TC; 84443-TC; 84484-TC; 85025-TC; 86850-TC; 86921-TC; 87081-TC; 88305-TC; 88311-TC; 93307-TC; 97001-TC; 97110-TC; 97116-TC; 97530-TC; 97760-TC; A4216; A4217; A6402; C1713; J0330; J0690; J1100; J1170; J1815; J1885; J1940; J2001; J2250; J2274; J2310; J2405; J2704; J2710; J3010; J3475; J3490; J7030; J7050; J7060; L1830; Z7610